=== PATIENT | female | born 1990 | race African-American/Black ===

== ENCOUNTER 2016-12-08 11:04 | Inpatient (IN) | payer OTHER ==
--- NOTE | ~2016-12-08 | PA ---
Unit #: [id number] #: [id number] Patient: SCARLETT BRAR [id number] [facility] [address] [place] [address] [id number] I MR#: [id number] NAME: SCARLETT BRAR ROOM: P254 Age: 26 Sex: F Admission Date: 12/08/2016 : 1990 Date of Assessment: Attending Physician: Pool Pat M.D. Admitting Physician: Pool Pat M.D. Primary Care Physician: Ugo Chowdhury M.D. PSYCHIATRIC ASSESSMENT INFORMANT The patient reliability, fair; chart reliability, good. CHIEF COMPLAINT Depression and paranoia. HISTORY OF PRESENT ILLNESS Ms. Scarlett Brar is a 26-year-old female, well known to us from her previous admission on 11/22/2016 when presented with increase in depression, suicidal ideation, paranoia. The patient reported that having suicidal ideation with a plan. The patient was in outpatient program, IOP level of care. Subsequently, the patient was stepped up. The patient reported that she takes all her medication and mixed with alcohol. The patient reported that she is paranoid stating that there are people running through the house and ringing her door terrell. The patient having suicidal ideation with a plan, therefore, needed inpatient admission at this time for psychiatric stabilization. PAST PSYCHIATRIC HISTORY Remarkable for history of [facility] after that step down to IOP level of care. FAMILY HISTORY AND SOCIAL HISTORY The patient lives alone, has some support from her mother who has a chronic medical illness schizophrenia per patient. No known history of any abuse. MEDICAL HISTORY Remarkable for history of asthma, recent suicide attempt by drinking bleach on last admission. Musculoskeletal; muscle strength and tone, no atrophy or abnormal movement. Gait normal. MEDICATION HISTORY None. ALLERGIES No known drug allergies. SUBSTANCE ABUSE HISTORY History of tobacco use, alcohol abuse. No history of any HIV, hepatitis, or IV drug use. REVIEW OF SYSTEMS Unit #: [id number] #: [id number] Patient: SCARLETT BRAR HEENT: Eyes, clear. Ears, nose, mouth, and throat; clear. CARDIOVASCULAR: Unremarkable. RESPIRATORY: Unremarkable. GI: Unremarkable. : Unremarkable. SKIN: Unremarkable. LYMPH NODE: Unremarkable. NEUROLOGIC: Unremarkable. ENDOCRINE: Unremarkable. HEMATOLOGIC: Unremarkable. ALLERGIC/IMMUNOLOGIC: Unremarkable. MUSCULOSKELETAL: Muscle strength and tone, no atrophy or abnormal movement. Gait normal. MENTAL STATUS EXAMINATION CONSTITUTIONAL: Measurement of vital signs; temperature 98.9, pulse 82, respirations 21, and blood pressure 128/89, height 5 feet 1 inch, weight 111 pounds. GENERAL APPEARANCE: The patient dressed casually, thin built, short statured, pleasant, and cooperative. No facial deformity noted. MUSCULOSKELETAL: Please see above. PSYCHIATRIC EXAMINATION Description of speech; regular rate, normal volume. Description of thought process, goal directed. Description of association, intact. Description of abnormal psychotic thinking, paranoia, delusions, suicidal ideation with a plan. Denied any homicidal ideation. Description of the patient's judgment, concerning everyday activity, poor. Social situation, poor. Concerning psychiatric condition, poor. Complete mental status examination; oriented in time, place, and person. Recent and remote memory, fair. Attention span and concentration, fair. Language, able to name object, repeat phrases. Fund of knowledge, aware of current event, passive vocabulary intact. Mood and affect, sad and dysphoric. Insight and judgment, fair to poor. ASSETS AND LIABILITIES Assets, the patient is articulate and able to take care of her ADL. Liability, history of depression and alcohol abuse. ADMITTING DIAGNOSES Psychiatric: Major depressive disorder, recurrent, severe, F33.2; alcohol use disorder, severe, F10.20; anxiety disorder, not otherwise specified, F41.9. Secondary diagnosis: Deferred. Medical diagnosis: Asthma. Stressors: Psychosocial stressors. PSYCHIATRIC PLAN AND TREATMENT GOAL AND DISCHARGE PLAN 1. Advised to admit the patient on the inpatient unit. Provide safe, supportive, and structured environment. 2. Ordered labs; CBC, CMP, UA, UDS. 3. Precaution for self-harm and aggression. 4. The patient started on detox protocol and detox monitoring. Advised to continue with current medication with a plan to consider adding Unit #: [id number] #: [id number] Patient: SCARLETT BRAR. Also check test. The patient to attend group therapy, individual therapy, family session. 5. Treatment goal; to attain euthymic mood, gain insight into her problem, and learn coping skills. 6. Discharge plan; plan to stabilize the patient and consider followup in outpatient program. ESTIMATED LENGTH OF STAY 5 to 7 days. Dictated by... Brielle Brennan/yusuf TD: 12/10/2016 22:44 JOB #: [id number] PSYCHIATRIC ASSESSMENT X Pool Pat MD X PSYCHIATRIC ASSESSMENT
--- NOTE | ~2016-12-08 | CO ---
Unit #: [id number] #: [id number] Patient: SCARLETT BRAR [id number] [place] [address] [id number] MR#: [id number] NAME: SCARLETT BRAR ROOM: P254 Age: 26 Sex: F Admission Date: 12/08/2016 : 1990 Attending Physician: Pool Pat M.D. Primary Care Physician: Ugo Chowdhury M.D. Consultation Date: 12/11/2016 CONSULTATION REPORT HISTORY OF PRESENT ILLNESS Scarlett reports a foul smelling urine and positive frequency with only small amounts of urine coming out. She also has noticed occasional lower back pain for the past few days. No fever, muscle aches, or chills. No abdominal pain. She also reports vaginal discharge with a foul odor that sometimes smells fishy. She has a history of bacterial vaginosis and believes that this is the same thing she has similar symptoms. She has no other complaints. PHYSICAL EXAMINATION CARDIAC: Regular rate and rhythm. No murmur, gallop, or rub. RESPIRATORY: Clear to auscultation bilaterally. ABDOMEN: Bowel sounds positive in all 4 quadrants. No abdominal tenderness to palpation. No CVA tenderness or flank pain. ASSESSMENT AND PLAN 1. Urinary tract infection. Scarlett had positive nitrites and 4+ bacteria in her urine. We will begin Bactrim DS 1 tab p.o. b.i.d. for 3 days. 2. Bacterial vaginosis. We will begin Flagyl 500 mg one p.o. b.i.d. for 7 days. Dictated by... Megan Savage A.P.R.N. for Brielle Sarmiento/yusuf TD: 12/11/2016 15:40 JOB #: [id number] CONSULTATION REPORT X MEGAN PASTRANA APRN X CONSULTATION REPORT
--- NOTE | ~2016-12-08 | PN ---
Unit #: [id number] #: [id number] Patient: MELY BRAR [id number] [facility] [address] [place] [address] [id number] MR#: [id number] NAME: MEYL BRAR ROOM: P254 Age: 26 Sex: F Admission Date: 12/08/2016 : 1990 Attending Physician: Pool Pat M.D. Admitting Physician: Pool Pat M.D. Primary Care Physician: Brielle Loaiza PROGRESS NOTES DATE 12/11/2016 DISCUSSION Mr. Pantoja is a 26-year-old female, seen on 12/11/2016. The patient interviewed, chart reviewed, and obtained information from the nursing staff. The patient was compliant and cooperative. Mood was brighter. The patient was able to maintain safe behavior. Vital signs are stable, temperature 98.8, pulse 78, and blood pressure 126/85. REVIEW OF SYSTEMS Complete review of systems unremarkable. MENTAL STATUS EXAMINATION General appearance: Patient casually dressed. Attention span and concentration, fair. Oriented to place and person. Mood and affect, sad and dysphoric. Speech, regular rate. Thought process, goal-directed. Association, the patient denied any thoughts of harming self or others or any psychotic symptoms. Recent and remote memory, poor. Insight and judgment, poor. DIAGNOSIS Bipolar mood disorder, NOS. ASSESSMENT/PLAN Advised to continue with the current medication and therapeutic protocol and will monitor response to medication, and make further adjustment of medication. Dictated by... Brielle Brennan/mike TD: 12/12/2016 09:01 JOB #: [id number] Unit #: [id number] #: [id number] Patient: MELY BRAR PROGRESS NOTES X Pool Pat MD PROGRESS NOTE
--- NOTE | ~2016-12-08 | PN ---
Unit #: [id number] #: [id number] Patient: MELY BRAR [id number] [facility] [address] [place] [address] [id number] I MR#: [id number] NAME: MELY BRAR ROOM: P254 Age: 26 Sex: F Admission Date: 12/08/2016 : 1990 Attending Physician: Pool Pat M.D. Admitting Physician: Pool Pat M.D. Primary Care Physician: Brielle Loaiza PROGRESS NOTES DATE OF SERVICE: 12/09/2016 DISCUSSION Ms. Pantoja is a 26-year-old female, seen on 12/09/2016. The patient interviewed, chart reviewed, and obtained information from nursing staff. The patient was compliant and cooperative. Mood is sad, dysphoric, flat affect, guarded. The patient is still withdrawn, having paranoia, delusions, depression, and suicidal ideation. REVIEW OF SYSTEMS Complete review of systems is unremarkable. MENTAL STATUS EXAMINATION General appearance, the patient dressed casually. Attention span and concentration, fair. Oriented in place and person. Mood and affect, sad and dysphoric. Speech, monotone. Thought process, concrete. The patient denied any homicidal ideation, but having suicidal ideation, paranoia, delusions. Recent and remote memory, poor. Insight and judgment, poor. DIAGNOSES 1. Major depressive disorder, recurrent, with psychotic feature, rule out schizophrenia. 2. Alcohol use disorder, moderate. ASSESSMENT AND PLAN Advised to continue with current medication with a plan to add Zyprexa 5 mg at bedtime. If needed, consider further adjustment of medication. Dictated by... Brielle Brennan/yusuf TD: 12/11/2016 07:31 JOB #: [id number] Unit #: [id number] #: [id number] Patient: MELY BRAR PROGRESS NOTES X Pool Pat MD PROGRESS NOTE
--- NOTE | ~2016-12-08 | PN ---
Unit #: [id number] #: [id number] Patient: MELY BRAR [id number] [facility] [address] [place] [address] [id number] MR#: [id number] NAME: MELY BRAR ROOM: P254 Age: 26 Sex: F Admission Date: 12/08/2016 : 1990 Attending Physician: Pool Pat M.D. Admitting Physician: Pool Pat M.D. Primary Care Physician: Brielle Loaiza PROGRESS NOTES DATE OF SERVICE: 12/10/2016 DISCUSSION Ms. Pantoja is a 26-year-old female, seen on 12/10/2016. The patient reported that she is feeling better, compliant with medication. Reported mood is still sad and depressed, but paranoia. No complaints. Complete review of systems unremarkable. MENTAL STATUS EXAMINATION General appearance, the patient dressed casually. Attention span and concentration, fair. Oriented in place and person. Mood and affect, sad, depressed, flat. Speech, monotone. Thought process, concrete. The patient denied any thoughts of harming self or others, but still having passive suicidal ideation, guarded, paranoid. Recent and remote memory, poor. Insight and judgment, poor. DIAGNOSES 1. Mood disorder, not otherwise specified. 2. Rule out schizophrenia. 3. Bipolar mood disorder. 4. Alcohol use disorder, severe. ASSESSMENT AND PLAN Advised to continue with current medication and therapeutic protocol. We will monitor response to medication and make further adjustment of medication. Dictated by... Brielle Brennan/yusuf TD: 12/11/2016 19:51 JOB #: [id number] Unit #: [id number] #: [id number] Patient: MELY BRAR PROGRESS NOTES X Pool Pat MD PROGRESS NOTE
--- NOTE | ~2016-12-08 | DS ---
Unit #: [id number] #: [id number] Patient: MELY BRAR [id number] [facility] [address] [place] [address] [id number] I MR#: [id number] NAME: MELY BRAR ROOM: P254 Age: 26 Sex: F Admission Date: 12/08/2016 : 1990 Discharge Date: 12/12/2016 Attending Physician: Pool Pat M.D. Primary Care Physician: Ugo Chowdhury M.D. DISCHARGE SUMMARY REASON FOR ADMISSION Psychosis and depression. DIAGNOSTIC STUDIES LABORATORY RESULTS: Unremarkable. HOSPITAL COURSE The patient was admitted to inpatient unit on 12/08/2016 and discharged on 12/12/2016. The patient was treated on the inpatient unit with group therapy, individual therapy, and medication management. The patient responded well with the above modalities of treatment. Subsequently, the patient was discharged with a plan to follow up in outpatient program. DISCHARGE MEDICATIONS Zyprexa 5 mg at bedtime for psychosis. The patient is to continue with the other medications; Remeron 15 mg at bedtime for depression, Celexa 20 mg at bedtime for depression, Vistaril 25 mg b.i.d. for anxiety, the patient was also on an antibiotic for infection, metronidazole 500 mg daily for 5 days, and Bactrim 1 tablet b.i.d. for 5 days for UTI and bacterial vaginosis. DISCHARGE DIAGNOSES Psychiatric: 1. Major depressive disorder, recurrent, severe, F33.2. 2. Alcohol use disorder, severe. 3. Anxiety disorder, not otherwise specified. 4. Rule out schizophrenia. Secondary diagnosis: Deferred. Medical diagnoses: Asthma, urinary tract infection, and bacterial vaginosis. Stressors: Psychosocial stressors. DISCHARGE INSTRUCTIONS The patient is to follow up in outpatient clinic as per social media content specialist. CONDITION ON DISCHARGE The patient was pleasant and cooperative. Denied any psychotic symptom or any suicidal ideation. PROGNOSIS Guarded. Unit #: [id number] #: [id number] Patient: MELY BRAR DIET AND ACTIVITY As tolerated. Dictated by... Pool Pat M.D. SZC/keturahl TD: 12/12/2016 20:57 JOB #: [id number] DISCHARGE SUMMARY X Pool Pat MD X DISCHARGE SUMMARY
--- NOTE | ~2016-12-08 | HP ---
Unit #: [id number] #: [id number] Patient: SCARLETT BRAR [id number] [facility] [address] [place] [address] [id number] I MR#: [id number] NAME: SCARLETT BRAR ROOM: P254 Age: 26 Sex: F Admission Date: 12/08/2016 : 1990 Attending Physician: Pool Pat M.D. Admitting Physician: Pool Pat M.D. Primary Care Physician: Ugo Chowdhury M.D. HISTORY AND PHYSICAL Scarlett is a 26 year old admitted to [address] [place] [address] with depression verbalizing wanting to hurt herself. She was just discharged from this facility after treatment for the same. The patient was seen and H and P dated 11/22/16 was reviewed. This is current. No changes. Please see H and P dated 11/22/16. Dictated by... Dhara Pollock P.A.-C. for Brielle Sarmiento/stephanie TD: 12/08/2016 18:17 JOB #: [id number] HISTORY AND PHYSICAL X Dhara Pollock HISTORY AND PHYSICAL
[2016-12-11 11:32] LABS: URINE APPEARANCE CLOUDY; URINE BILIRUBIN NEG (NEG); URINE BLOOD NEG (NEG); URINE COLOR YELLOW; URINE GLUCOSE NEG (NEG); URINE KETONE NEG (NEG); URINE LEUKOCYTE ESTERASE NEG (NEG); URINE NITRATE POS (NEG); URINE PH 6.5 (5-8); URINE PROTEIN NEG (NEG); URINE SPECIFIC GRAVITY 1.027 (1.003-1.035)
[2016-12-11 11:36] LABS: URINE BACTERIA AUWI 4+ (NEGATIVE); URINE SQUAMOUS EPITHELIAL CELL OCC /[HPF]
[2016-12-11 12:18] LABS: AMPHETAMINE NEG (NEG); BARBITURATES NEG (NEG); BENZODIAZEPINES POS (NEG); COCAINE NEG (NEG); MARIJUANA NEG (NEG); OPIATES NEG (NEG); TRICYCLIC ANTIDEPRESSANTS NEG (NEG); U METHADONE NEG (NEG)
== END 2016-12-12 13:00 | disposition home or self-care (01) | DRG 885 ==
LOC: POF 11:04 → P2L 11:46 → POF 12-09 15:15 → P2L 12-09 15:24
PROVIDERS: Psychiatry & Neurology Psychiatry
DX: F33.2 Major depressive disorder, recurrent severe without psychotic features (principal); N39.0 Urinary tract infection, site not specified; F10.20 Alcohol dependence, uncomplicated; F41.9 Anxiety disorder, unspecified; J45.909 Unspecified asthma, uncomplicated; N76.0 Acute vaginitis
CPT/HCPCS: 80307; 81003

== ENCOUNTER 2017-03-15 12:30 | Emergency (ER) | payer OTHER ==
--- NOTE | ~2017-03-15 | EKG ---
PATIENT: MELY BRAR UNIT #: [id number] Ventricular Rate: 105 BPM Atrial Rate: 105 BPM P-R Interval: 172 ms QRS Duration: 66 ms Q-T Interval: 338 ms QTC Calculation(Bezet): 446 ms P Carey: 54 degrees Calculated R Carey: 64 degrees Calculated T Carey: 47 degrees Diagnosis Line: Sinus tachycardia Diagnosis Line: Otherwise normal ECG Diagnosis Line: No previous ECGs available Diagnosis Line: Confirmed by MARY ANNE CARVER MD ([id number]) on Diagnosis Line: 03/17/2017 3:41:38 PM INTERPRETING MD: ALBARO
[2017-03-15] MEDS ORDERED: REMERON PO (13:12)
[2017-03-15] MEDS ORDERED: VENLAFAXINE HCL75 M1 PO (13:14)
[2017-03-15] MEDS ORDERED: COGENTIN1 M1 PO (13:14)
[2017-03-15] MEDS ORDERED: THORAZINE25 MG PO (13:15)
[2017-03-15] MEDS ORDERED: RISPERIDONE PO (13:18)
[2017-03-15] MEDS ORDERED: PATIENT'S PHARMACY (13:18)
[2017-03-15 13:57] LABS: BASOPHIL% 0.3 % (0-2.5); EOSINOPHIL% 0.5 % (0.0-7.0); HEMATOCRIT 40.6 % (35.0-45.0); HEMOGLOBIN 13.4 gm/dL (12.0-16.0); LYMPHOCYTE# 0.7 X10e3 (1.0-3.5); LYMPHOCYTE% 8.3 % (17.0-45.0); MEAN CELL VOLUME 90.1 FL (83-96); MEAN CORPUSCULAR HEMOGLOBIN 29.8 PG (28-34); MEAN CORPUSCULAR HGB CONC 33.1 g/dL (30-36); MEAN PLATELET VOLUME 7.6 FL (6.5-11.5); MONOCYTE# 0.5 X10e3 (0-1.0); MONOCYTE% 5.7 % (3.0-12.0); NEUTROPHIL# 7.7 X10e3 (1.5-7.1); NEUTROPHIL% 85.2 % (40-75); PLATELET COUNT 276 X10e3 (140-420); RED CELL DISTRIBUTION WIDTH 12.8 % (11.0-15.5)
[2017-03-15 13:58] LABS: DIFF IND NO
[2017-03-15 14:09] LABS: PARTIAL THROMBOPLASTIN TIME 29.4 SECONDS (23.5-31.3); PROTHROMBIN TIME (PATIENT) 11.1 SECONDS (10.0-11.7)
[2017-03-15 14:22] LABS: ALBUMIN SERUM 4.1 g/dL (3.5-5.0); BILIRUBIN, DIRECT 0.1 mg/dL (0.0-0.2); BILIRUBIN,INDIRECT 0.5 mg/dL (0.0-0.9); BILIRUBIN,TOTAL 0.6 mg/dL (0.2-2.0); BUN/CREATININE RATIO 18.33; CREATININE SERUM 0.6 mg/dL (0.6-1.4); GLOM FILT RATE Estimated 145.8 mL/min (>60); POTASSIUM 3.9 mmol/L (3.5-5.1); PROTEIN TOTAL SERUM 7.8 g/dL (6.0-8.3)
== END 2017-03-15 14:55 | disposition left against medical advice (07) ==
LOC: CED 12:30
PROVIDERS: Emergency Medicine
DX: R55 Syncope and collapse (principal); J45.909 Unspecified asthma, uncomplicated; F32.9 Major depressive disorder, single episode, unspecified; F17.200 Nicotine dependence, unspecified, uncomplicated; Z88.8 Allergy status to other drugs, medicaments and biological substances; Z79.899 Other long term (current) drug therapy
CPT/HCPCS: 80048; 80076; 85025; 85379; 85610; 85730; 93005; 99284